=== PATIENT | female | born 1970 | race Caucasian/White ===

== ENCOUNTER → 2018-03-08 | Outpatient (CLI) | payer BC | LOC: MC.RAD 11:29 | DX: Z12.31 Encounter for screening mammogram for malignant neoplasm of breast (principal) ==

== ENCOUNTER → 2020-12-09 | Outpatient (CLI) | payer BC | LOC: MC.RAD 15:17 | DX: Z12.31 Encounter for screening mammogram for malignant neoplasm of breast (principal) ==

== ENCOUNTER → 2021-02-25 | Outpatient (CLI) | payer BC | LOC: SDCO 11:00 → EDSTATUS 11:00 → ZCOL.LAB 12:00 | DX: Z12.11 Encounter for screening for malignant neoplasm of colon (principal); Z20.822 Contact with and (suspected) exposure to COVID-19 ==

== ENCOUNTER 2021-09-09 07:59 | Day surgery (SDC) | payer BC ==
[~2021-09-09] VITALS: Ht 167.6 cm; Wt 88.5 kg
[2021-09-09 09:00] VITALS: BP 127/79; PULSE 82; TEMP 97.7
[2021-09-09 09:50] VITALS: BP 104/68; PULSE 79; TEMP 97.5
--- NOTE | 2021-09-09 09:50 | NUR ---
Pt returned from procedure via cart, escorted by RikyRN, pt A&O, ambulates to chair with SBA X1, and without difficulties, VSS, fluids and food offered pt refused, reviewed POC with her and at chair side, verbalized understanding and denies any further needs at this time.
[2021-09-09 10:15] VITALS: BP 117/69; PULSE 63
[2021-09-09 10:30] VITALS: BP 116/76; PULSE 61
--- NOTE | 2021-09-09 10:32 | NUR ---
Pt discharged, reviewed instructions, verbalized understanding, left via W/C escorted by staff
== END 2021-09-09 10:32 | disposition home or self-care (01) ==
LOC: SDCO 07:59
DX: Z12.11 Encounter for screening for malignant neoplasm of colon (principal); K63.5 Polyp of colon; D12.0 Benign neoplasm of cecum; K21.9 Gastro-esophageal reflux disease without esophagitis; Z90.710 Acquired absence of both cervix and uterus; Z83.71 Family history of colonic polyps
CPT/HCPCS: J2704; J3010; J7120